=== PATIENT | female | born 1935 | race Caucasian/White ===

== ENCOUNTER 2017-01-15 14:53 | Inpatient (IN) | payer OTHER ==
[~2017-01-15] VITALS: Ht 160 cm; Wt 87.5 kg
[2017-01-15] VITALS (11 sets, daily range): BP systolic 79–167
[~2017-01-15 14:53] MED LIST: DEXTROSE 50% JECT 50 ML DISP.SYRIN ONE; LIDOCAINE 2GM/500 ML D5W BAG IV ONE; LIDOCAINE JECT 2% PF 100 MG/5ML SYRINGE ONE
[2017-01-15] MEDS ORDERED: VECURONIUM BROMIDE 10 MG/VIAL (NORCURON) IV ONE (15:00)
[2017-01-15] MEDS ORDERED: SUCCINYLCHOLINE CHLORIDE 20 MG/ML(QUELICIN) IVP ONE ×2 (15:00→15:15)
--- NOTE | 2017-01-15 15:12 | NUR ---
Patient not known to be of DNR status. Respiratory therapy at bedside prior to placement. Size 7.5 ET tube placed by Dr. Hale Cuff inflated with 10 cc air. Auscultation of breath sounds over bilateral chest wall. ET tube secured with tape. O2 sats 100% pulse ox. PCXR ordered to check tube placement.
[2017-01-15] MEDS ORDERED: PANCURONIUM BROMIDE 10 MG/10 ML VIAL (PAVULON) IV ONE (15:15)
[2017-01-15] MEDS ORDERED: PROPOFOL DRIP 100 ML IV ONE ×2 (15:15→15:22)
[2017-01-15] MEDS ORDERED: NACL 0.9% 1,000 ML IV ONE (15:15)
--- NOTE | 2017-01-15 15:15 | NUR ---
Patient to ER bed 02 to gown for evaluation. Side rails up.
--- NOTE | 2017-01-15 15:20 | NUR ---
PT INTUBATED AT THIS TIME WITH A SIZE 7.5ETT/23CM AT THE LIPLINE. COLOR CHANGE NOTED ON CALORIMETRIC CO2 DETECTOR WITH BILATERAL BREATHSOUND AUSCULTATED. PT PLACED ON CURNT VENT SETNGS OF AC 14 500 +5 50% VERBALIZED TO ER MD, SAT OF 100% AND HR OF 95 RECORDED ON MONITOR WITH BP 141/55, NO RESP DISTRESS NTD. RN INFORMED
--- NOTE | 2017-01-15 15:20 | NUR ---
Silviano tse in ED - 01/15/17 at 1722 by SDEDAFJ Patient to bed to serg for evaluation. Side rails up.
--- NOTE | 2017-01-15 15:30 | NUR ---
Pt arrived to ER via ACLS, Alert to voice, eyes epen, pt present with SOB and hyperventilation,per cecil luz possible aspiration pneumonia, +4 edema noted in jake upper and lower extremities, VS 127/80 , O2 91%, skin warm, cap refill <3,
[2017-01-15] MEDS ORDERED: SODIUM CL 3% FOR INHALATION 15 ML VIAL.NEB INH ONE (15:45)
[2017-01-15 15:59] LABS: EOSINOPHILS # (AUTO) 0.1 K/uL (0.0-0.4); EOSINOPHILS % (AUTO) 0.6 % (0.0-4.0); HEMOGLOBIN 10.2 g/dL (12.0-16.0); MEAN CORPUSCULAR HEMOGLOBIN 32 pg (27-31); NEUTROPHILS # (AUTO) 11.8 K/uL (1.8-7.7)
[2017-01-15 16:08] LABS: ANION GAP 5 (5-15); CALCIUM 8.4 mg/dL (8.4-11.0); CHLORIDE 105 mmol/L (98-107); CREATININE 1.92 mg/dL (0.55-1.30); GLUCOSE 106 mg/dL (70-99); HEMATOCRIT 29.8 % (36-48); MEAN CORPUSCULAR HGB CONC 34 % (32-36); MEAN CORPUSCULAR VOLUME 94 fL (79.0-98.0); POTASSIUM 5.3 mmol/L (3.5-5.1); RED BLOOD CELL COUNT(AUTO) 3.16 MIL/uL (4.2-6.2); SODIUM SERUM 135 mmol/L (136-145); UREA NITROGEN, BLOOD 53 mg/dL (8-21); WHITE BLOOD COUNT (AUTO) 13.9 K/uL (4.8-10.8)
[2017-01-15 16:09] LABS: BASOPHILS # (AUTO) 0.1 K/uL (0.0-0.2); BASOPHILS % (AUTO) 0.9 % (0.0-2.0); LYMPHOCYTES # (AUTO) 0.6 K/uL (1.0-5.5); LYMPHOCYTES % (AUTO) 4.4 % (20.5-51.5); MONOCYTES # (AUTO) 1.3 K/uL (0.0-1.0); MONOCYTES % (AUTO) 9.7 % (1.7-9.3); NEUTROPHILS % (AUTO) 84.4 % (40.0-70.0); PLATELET COUNT (AUTO) 193 K/uL (130-430)
[2017-01-15 16:11] LABS: INR 1.1 (0.8-1.2); PROTHROMBIN TIME 12.1 SECS (9.5-12.5)
[2017-01-15 16:13] LABS: ALANINE AMINOTRANSFERASE 35 U/L (12-78); ALBUMIN 3.1 g/dL (3.4-4.8); ASPARTATE AMINOTRANSFERASE 46 U/L (10-37); TOTAL BILIRUBIN 1.1 mg/dL (0.0-1.0); TOTAL PROTEIN, SERUM 7.6 g/dL (6.4-8.3)
[2017-01-15] MEDS ORDERED: PIPERACILLIN/TAZO 3.375 GM in NS 50 ML IV ONE (16:15)
[2017-01-15 16:47] LABS: ABG TOTAL HEMOGLOBIN 10.9 G/dL (12.0-18.0); BLOOD GAS BASE EXCESS -3.4 mmol/L (-3.0-3.0); BLOOD GAS COHb% 0.1 % (0.5-1.5); BLOOD GAS PH 7.361 (7.350-7.450); BLOOD O2Hb% 98.1 % (94.0-97.0)
[2017-01-15 16:48] LABS: BLOOD GAS HHB 1.6 % (0.0-6.0)
--- NOTE | 2017-01-15 17:00 | NUR ---
16# FR King catheter with use of sterile technique. Immediate return of 200 cc urine noted. Bedside drainage bag placed below level of bladder. Urine sample collected and sent to lab. Pt tolerated procedure . Patient unable to toilet self.
[2017-01-15] MEDS ORDERED: ALBUTEROL SULFATE 0.083% 2.5 MG/3 ML VIAL.NEB INH PRN (17:15)
[2017-01-15] MEDS ORDERED: ENOXAPARIN SODIUM 60 MG/0.6 ML SYRINGE SUBCUT ONE (17:15)
[2017-01-15] MEDS ORDERED: IPRATROPIUM BROM 0.5 MG/2.5 ML VIAL.NEB (ATROVENT) INH PRN (17:15)
[2017-01-15] MEDS ORDERED: ASPIRIN 81 MG TAB.CHEW NG ONE (17:15)
[2017-01-15 17:36] LABS: BILIRUBIN,URINE NEGATIVE (NEGATIVE); BLOOD, URINE 1+ (NEGATIVE); CLARITY/URINE SL HAZY (CLEAR); COLOR,URINE YELLOW (YELLOW); GLUCOSE,URINE NEGATIVE (NEGATIVE); KETONES,URINE NEGATIVE (NEGATIVE); LEUKOCYTE ESTERASE ,URINE NEGATIVE (NEGATIVE); NITRITE, URINE NEGATIVE (NEGATIVE); PROTEIN URINE 1+ (NEGATIVE); UROBILINOGEN,URINE 0.2 (0.2-1.0)
[2017-01-15] MEDS ORDERED: ACET325T53 PO (17:47)
[2017-01-15] MEDS ORDERED: METO50TA3 PO (17:47)
[2017-01-15] MEDS ORDERED: MORP20SY PO (17:47)
[2017-01-15] MEDS ORDERED: LEVO175T7 PO (17:47)
[2017-01-15] MEDS ORDERED: [UNRECOGNIZED DRUG - CODE] PO (17:47)
[2017-01-15] MEDS ORDERED: ONDA4VIA53 PO (17:47)
[2017-01-15] MEDS ORDERED: MELA3TAB37 PO (17:47)
[2017-01-15] MEDS ORDERED: MUPI1OIN5 TP (17:47)
[2017-01-15] MEDS ORDERED: METO1TAB11 PO (17:47)
[2017-01-15] MEDS ORDERED: SENN-83 PO (17:47)
[2017-01-15 17:48] LABS: BACTERIA,URINE FEW /HPF (None Seen)
[2017-01-15 17:50] LABS: FINE GRANULAR CASTS,URINE 0-10 /LPF (None Seen); MUCUS,URINE None Seen /LPF (None Seen); URINE AMORPHOUS URATE 1+ /HPF (None Seen)
[2017-01-15] MEDS ORDERED: PIPERACILLIN/TAZOBACTAM 3.375 GM/VIAL (ZOSYN) IV ONE ×2 (17:56→18:10)
--- NOTE | 2017-01-15 18:10 | NUR ---
Admission Received pt from ER via chun with ETT and on Profopol. Anderson 4. No SOB. Observed with +3 edema to BUE and BLE. Excoriation to bilateral under breast and abdominal folds. Nonblanchable redness to sacrum and buttocks. Excoriated bilateral upper thighs and perineum with open wounds. Photos taken. Family able to visit. Password for HIPPA purpose = "MOM". Will continue to monitor.
[2017-01-15 18:16] LABS: BARBITURATE, URINE NEGATIVE (NEG <=200); BENZODIAZEPINE, URINE NEGATIVE (NEG <=150); CANNABINOID, URINE NEGATIVE (NEG <=50); COCAINE, URINE NEGATIVE (NEG <=150); METHAMPHETAMINES SCREEN,URINE NEGATIVE (NEG <=500); OPIATE, URINE POSITIVE (NEG <=100); PHENCYCLIDINE SCREEN,URINE NEGATIVE (NEG <=25); UR TRICYCLIC ANTIDEPRESSANTS NEGATIVE (NEG <=300); URINE AMPHETAMINE NEGATIVE (NEG <=500); URINE METHADONE NEGATIVE (NEG <=200); URINE OXYCODONE SCREEN NEGATIVE (NEG <=100); URINE PROPOXYPHENE SCREEN NEGATIVE (NEG <=300)
--- NOTE | 2017-01-15 19:00 | NUR ---
NGT inserted Ngt inserted to left nares. Ngt placement confirmed via audible air auscultation with 2 RNs, including myself and DOMINIK Bell.
--- NOTE | 2017-01-15 19:00 | NUR ---
Pt's BP Pt's BP was 84/41. Charge nurse Kim Roman made aware who spoke with Dr. Raymond and obtained IVF.
--- NOTE | 2017-01-15 19:00 | NUR ---
Patient will be admitted to care of Dr Guerrero . Admitted to ICU unit. Will go to room 6 . Belongings list completed. Summary report printed. Report given to Kim.
--- NOTE | 2017-01-15 19:00 | NUR ---
Skin Will turn and reposition pt q2H and PRN. Heels offloading. Good skin care provided.
[2017-01-15 19:26] LABS: INR 1.2 (0.8-1.2); PROTHROMBIN TIME 13.2 SECS (9.5-12.5)
[2017-01-15] MEDS: NACL 0.9% 1,000 ML IV SCH (19:42)
[2017-01-15] MEDS ORDERED: VANCOMYCIN HCL 1,000 MG in NS 250 ML IV ONE (20:00)
--- NOTE | 2017-01-15 20:00 | NUR ---
Nursing update No SOB on ETT connected to vent. No changes to vent settings. Still on Propofol 10mcg/kg/min, arango 4. Left arm edema seeping. No sign of pain. Will continue to monitor.
[2017-01-15] MEDS: ALBUTEROL SULFATE 0.083% 2.5 MG/3 ML VIAL.NEB INH SCH ×2 (20:19→23:12)
[2017-01-15] MEDS: IPRATROPIUM BROM 0.5 MG/2.5 ML VIAL.NEB (ATROVENT) INH SCH ×2 (20:19→23:12)
[2017-01-15] MEDS: CEFEPIME 1 GM in D5W 50 ML IV SCH (21:30)
--- NOTE | 2017-01-15 21:30 | NUR ---
Report given to DOMINIK Rey and endorsed all care.
--- NOTE | 2017-01-15 21:45 | NUR ---
PM ASSESSMENT: Received patient on ETT attached to vent with vent settings AC 14, TV 500, FiO2 40%, Peep 5. Patient non-verbal does not follow commands, arouses to tactile stimuli. Breathing even and unlabored. NGT on left nare present, clamped with dark brown drainage observed on the suction tube. Afebrile. SR with PACs on the monitor. IV access on the right ac G20 and left hand G22. No signs of redness or swelling on the IV sites. Patient on Diprivan at 10mcg/kg/min. Anderson scale of 4. Edema +3 noted on BUE and BLE. King cath draining calin colored urine. HOB elevated at 30 degrees with bed in lowest level and with 3 side rails up. Bed brakes locked. Call light within reach. Will continue to monitor.
--- NOTE | 2017-01-15 23:35 | NUR ---
IV RE-INSERTION: IV on the left hand dislodged. Started a new IV site at the left upper chest G22. Successful after 1 attempt. Resumed current Diprivan drip on that site and normal saline on the right ac. Will observe for any signs of infiltration.
[2017-01-16] VITALS (35 sets, daily range): BP systolic 81–140
--- NOTE | 2017-01-16 00:23 | NUR ---
PT UPDATE: Patient in no acute distress. Breathing even and unlabored. Vent settings tolerated well. Oral care done. Will continue to monitor.
[2017-01-16] MEDS: ALBUTEROL SULFATE 0.083% 2.5 MG/3 ML VIAL.NEB INH SCH ×6 (03:09→23:44)
[2017-01-16] MEDS: IPRATROPIUM BROM 0.5 MG/2.5 ML VIAL.NEB (ATROVENT) INH SCH ×6 (03:09→23:44)
--- NOTE | 2017-01-16 04:00 | NUR ---
PT UPDATE: Patient in stable condition. No significant changes. Vital signs within normal limits. No acute distress or SOB noted. Vent settings tolerated well. Will continue to monitor.
--- NOTE | 2017-01-16 07:45 | NUR ---
BEGINNING OF SHIFT ASSESSMENT: Received patient lethargic, able to follow directions and make her needs known.Rhonchi lung sounds to bilateral upper lobes,diminished lung sounds to bilateral lower lobes. Pt tolerating current vent settings AC 14 TV 500 FIO2 40% PEEP 5.Patient currently infusing diprivan drip at 10 mcg/kg/min and NS at 70 mls/hr.Ports patent,flushable with blood return,dressings dry, intact, no signs of redness,infection noted.Bed locked,in lowest position,call light within easy reach,HOB elevated,upper side rails x 2 up.Pt continues to be closely monitored.
[2017-01-16 08:25] LABS: ABG TOTAL HEMOGLOBIN 10.1 G/dL (12.0-18.0); BLOOD GAS BASE EXCESS -2.9 mmol/L (-3.0-3.0); BLOOD GAS COHb% 0.3 % (0.5-1.5); BLOOD GAS HHB 1.7 % (0.0-6.0); BLOOD GAS PH 7.453 (7.350-7.450)
[2017-01-16 09:17] LABS: BASOPHILS # (AUTO) 0.1 K/uL (0.0-0.2); BASOPHILS % (AUTO) 0.8 % (0.0-2.0); EOSINOPHILS # (AUTO) 0.1 K/uL (0.0-0.4); EOSINOPHILS % (AUTO) 0.7 % (0.0-4.0); HEMATOCRIT 27.9 % (36-48); HEMOGLOBIN 9.2 g/dL (12.0-16.0); LYMPHOCYTES # (AUTO) 0.8 K/uL (1.0-5.5); LYMPHOCYTES % (AUTO) 5.1 % (20.5-51.5); MEAN CORPUSCULAR HEMOGLOBIN 32 pg (27-31); MEAN CORPUSCULAR HGB CONC 33 % (32-36); MEAN CORPUSCULAR VOLUME 97 fL (79.0-98.0); MONOCYTES # (AUTO) 1.2 K/uL (0.0-1.0); MONOCYTES % (AUTO) 7.9 % (1.7-9.3); NEUTROPHILS # (AUTO) 12.7 K/uL (1.8-7.7); NEUTROPHILS % (AUTO) 85.5 % (40.0-70.0); PLATELET COUNT (AUTO) 169 K/uL (130-430); RED BLOOD CELL COUNT(AUTO) 2.88 MIL/uL (4.2-6.2); RED CELL DISTRIBUTION WIDTH 18.5 % (9.0-15.0); WHITE BLOOD COUNT (AUTO) 14.9 K/uL (4.8-10.8)
[2017-01-16 09:21] LABS: ANION GAP 8 (5-15); CALCIUM 7.9 mg/dL (8.4-11.0); CHLORIDE 107 mmol/L (98-107); CREATININE 1.57 mg/dL (0.55-1.30); GLUCOSE 96 mg/dL (70-99); POTASSIUM 4.7 mmol/L (3.5-5.1); SODIUM SERUM 137 mmol/L (136-145); UREA NITROGEN, BLOOD 52 mg/dL (8-21)
[2017-01-16] MEDS: CEFEPIME 1 GM in D5W 50 ML IV SCH ×2 (09:46→20:56)
[2017-01-16] MEDS: NACL 0.9% 1,000 ML IV SCH (09:47)
--- NOTE | 2017-01-16 09:59 | NUR ---
Nutrition Update Bright Scale 12 noted. Pt admitted for pneumonia. Diet: NPO BMI: 26.6 kg/m2 RD to follow per nutrition care standards.
[2017-01-16] MEDS ORDERED: HYDROCORTISONE SOD SUCC 100 MG/2 ML VIAL IVP ONE (10:45)
[2017-01-16] MEDS ORDERED: NOREPINEPHRINE BITARTRATE 4 MG in NS 246 ML IV PRN (11:30)
[2017-01-16] MEDS ORDERED: FUROSEMIDE 100 MG in D5W 90 ML IV SCH (12:00)
--- NOTE | 2017-01-16 12:26 | NUR ---
MD COMMUNICATION: Dr. Raymond paged and contacted for pt complaint of pain 7/10 lower back pain.Received telephone orders for morphine 2mg IVP PRN Q4 for pain.
[2017-01-16] MEDS ORDERED: MORPHINE 2 MG/ML INJ. SYRINGE IVP PRN (12:30)
[2017-01-16] MEDS ORDERED: ACETAMINOPHEN 650 MG SUPP.RECT RC PRN (12:45)
[2017-01-16] MEDS ORDERED: ONDANSETRON HCL 4 MG/2 ML VIAL IVP PRN (12:45)
[2017-01-16] MEDS ORDERED: PANTOPRAZOLE SODIUM 40 MG/VIAL (PROTONIX) IVP ONE (13:15)
[2017-01-16] MEDS: MORPHINE 2 MG/ML INJ. SYRINGE IVP PRN ×2 (13:33→18:01)
--- NOTE | 2017-01-16 13:45 | NUR ---
PICC LINE: PICC line nurse at bedside performing procedure.Pt tolerating procedure.Pt continues to be monitored closely.
--- NOTE | 2017-01-16 14:20 | NUR ---
PICC LINE PLACEMENT VERIFIED: PICC line positive placement verified via chest x-ray.PICC line nurse stated PICC line can be used. Addendum: 01/16/17 at 1619 by Felipe Rodriguez RN Dr. Raymond informed and made aware.
--- NOTE | 2017-01-16 14:30 | NUR ---
PT CARE: CHG bath given, linen changed, oral care performed.Pt tolerating current vent settings.Bed locked, in lowest position,call light within easy reach, upper side rails x 2 up, HOB elevated.Pt continues to be monitored closely.
--- NOTE | 2017-01-16 16:00 | NUR ---
PT UPDATE: Patient turned,repositioned,suctioned.Pt continues to tolerate current vent settings.Pt monitored closely.
[2017-01-16] MEDS: HYDROCORTISONE SOD SUCC 100 MG/2 ML VIAL IVP SCH ×2 (16:13→22:25)
[2017-01-16] MEDS: PROPOFOL DRIP 100 ML IV PRN (17:00)
--- NOTE | 2017-01-16 18:00 | NUR ---
MORPHINE: Pt observed facial grimacing, restless, FLACC score of 7. Patient given morphine 2mg/ml IVP administered over 2 minutes as ordered. Reassess patient within 1 hour.
--- NOTE | 2017-01-16 18:30 | NUR ---
PAIN REASSESSMENT: Patient observed resting in bed, eye closed, no acute distress noted.Patient turned, repositioned and suctioned.Pt tolerating current vent settings, O2SAT 99%.Bed locked,in lowest position,call light within easy reach,HOB elevated,upper side rails x 2 up.
--- NOTE | 2017-01-16 19:05 | NUR ---
MD COMMUNICATION: Paged and made Dr. Raymond aware pt positive MRSA bilateral nares.Received new orders.Contact isolation precautions initiated.Contacted son Zhang, informed of pt condition,paperwork to be signed by family.Endorsed to DOMINIK Dubon of confirmed MRSA infection, family needing to sign MRSA patient notification paper work at front of chart.
--- NOTE | 2017-01-16 19:28 | NUR ---
CLOSING NOTE: Report and plan of care endorsed to DOMINIK Dubon via SBAR method.
--- NOTE | 2017-01-16 19:30 | NUR ---
PM ASSESS PT RESPONDS TO VOICE, LETHARGIC. AFEBRILE. WHEEZING AND RHONCHI AUSCULTATED BILAT. INTUBATED ETT7.5/22LL, VENT SETTINGS AC10, TV500, FIO2 35%, PEEP5, NO SOB OR DISTRESS. SR ON THE MONITOR. IV SITE ON RAC 20G, INTACT AND PATENT, INFUSING NS. ASHLEY PICC DOUBLE LUMEN, INTACT AND PATENT, INFUSING PROPOFOL AND LASIX. NGT ON LT NARE, PLACEMENT CHECKED, CLAMPED. TREJO CATHETER IN PLACE, DRAINING TO GRAVITY W/ YELLOW/DEANNA URINE. +3 PITTING EDEMA BUE AND BLE. EXCORIATION ON THIGHS, DENUDED ON SACRUM. POC DISCUSSED W/ FAMILY AND PT, FAMILY STATED UNDERSTANDING. ORIENTED TO CALL LIGHT AND W/IN REACH, SAFETY AND ISOLATION PRECAUTIONS IN PLACE, WILL CONTINUE TO MONITOR.
[2017-01-16] MEDS: VANCOMYCIN HCL 500 MG in NS 100 ML IV SCH (20:56)
[2017-01-16] MEDS: MUPIROCIN 2% TOPICAL OINTMENT 22 GM TP SCH (20:58)
[2017-01-17] VITALS (36 sets, daily range): BP systolic 90–159
[2017-01-17] MEDS: NACL 0.9% 1,000 ML IV SCH (00:48)
--- NOTE | 2017-01-17 03:00 | NUR ---
PROPOFOL INCREASED PT AGITATED, PROPOFOL INCREASED TO 15MCG/KG/MIN, PT TOLERATING WELL, WILL REASSESS SHORTLY.
[2017-01-17] MEDS: MORPHINE 2 MG/ML INJ. SYRINGE IVP PRN ×4 (03:09→22:33)
--- NOTE | 2017-01-17 03:15 | NUR ---
PAIN PT C/O GEN. PAIN, MORPHINE GIVEN, PT TOLERATING WELL, WILL REASSESS SHORTLY.
--- NOTE | 2017-01-17 03:15 | NUR ---
SVT PT CONVERTED TO SVT, VAGAL MANEUVERS DONE, HR DECREASING. ASYMPTOMATIC. SBP ABOVE 160. WILL CONTINUE TO MONITOR.
--- NOTE | 2017-01-17 04:15 | NUR ---
SR PT HR DECREASED TO 90'S, CONVERTED BACK TO SR. NO C/O PAIN AT THIS TIME. WILL CONTINUE TO MONITOR.
[2017-01-17] MEDS: HYDROCORTISONE SOD SUCC 100 MG/2 ML VIAL IVP SCH ×3 (05:06→21:05)
[2017-01-17] MEDS: PROPOFOL DRIP 100 ML IV PRN ×2 (05:56→17:51)
[2017-01-17 06:39] LABS: HEMATOCRIT 28.4 % (36-48); HEMOGLOBIN 9.4 g/dL (12.0-16.0); MEAN CORPUSCULAR HEMOGLOBIN 32 pg (27-31); MEAN CORPUSCULAR HGB CONC 33 % (32-36); MEAN CORPUSCULAR VOLUME 97 fL (79.0-98.0); PLATELET COUNT (AUTO) 188 K/uL (130-430); RED BLOOD CELL COUNT(AUTO) 2.93 MIL/uL (4.2-6.2); WHITE BLOOD COUNT (AUTO) 19.5 K/uL (4.8-10.8)
[2017-01-17 07:15] LABS: ALANINE AMINOTRANSFERASE 26 U/L (12-78); ALBUMIN 2.3 g/dL (3.4-4.8); ANION GAP 6 (5-15); ASPARTATE AMINOTRANSFERASE 31 U/L (10-37); CHLORIDE 111 mmol/L (98-107); GLUCOSE 118 mg/dL (70-99); POTASSIUM 4.7 mmol/L (3.5-5.1); SODIUM SERUM 140 mmol/L (136-145); TOTAL PROTEIN, SERUM 6.4 g/dL (6.4-8.3); UREA NITROGEN, BLOOD 50 mg/dL (8-21)
--- NOTE | 2017-01-17 07:15 | NUR ---
[place] of care Pt on ETT with settings: AC 10, TV 500, fio2 35%, Peep 5. Tolerating well without SOB. On propofol drip 15mcg/min with arango 4. No sign of pain. Seeping BUE edema. Turned and repositioned. Safe environment provided. Will continue to monitor.
--- NOTE | 2017-01-17 07:36 | NUR ---
CLOSING ALL NEEDS MET. REPORT GIVEN W/ SBAR AT BEDSIDE TO NURSE STEPHANIE LEHMAN.
[2017-01-17] MEDS: IPRATROPIUM BROM 0.5 MG/2.5 ML VIAL.NEB (ATROVENT) INH SCH ×5 (07:46→23:56)
[2017-01-17] MEDS: ALBUTEROL SULFATE 0.083% 2.5 MG/3 ML VIAL.NEB INH SCH ×5 (07:46→23:56)
--- NOTE | 2017-01-17 08:27 | NUR ---
RT NOTES Per Dr José's order, vent settings changed to SIMV 8 PS 10. No immediate adverse effects noted. Vitals before vent change: H.R. 80 R.R 10. Pt. was educated on deep breathing and appears to follow understand. Will cont. to monitor pt.
--- NOTE | 2017-01-17 08:30 | NUR ---
Monitoring pt with the change in vent settings. Will check if pt able to tolerate SIMV. Will keep RT informed.
[2017-01-17] MEDS: 0.45% NACL 1,000 ML IV SCH (08:42)
[2017-01-17] MEDS: PANTOPRAZOLE SODIUM 40 MG/VIAL (PROTONIX) IVP SCH (08:44)
[2017-01-17] MEDS: CEFEPIME 1 GM in D5W 50 ML IV SCH ×2 (08:44→20:13)
[2017-01-17] MEDS: FUROSEMIDE 100 MG in D5W 90 ML IV SCH (09:00)
--- NOTE | 2017-01-17 09:15 | NUR ---
RT NOTES Found H.R. 100 and vent alarming to indicate low minute volume. Pt. was reeducated on SIMV mode and was re-assessed by asking how breathing is with Ingrdi's help.(in-house paste mixer). Pt. denies difficulty breathing at first and was re-educated on deep-breathing, as well as why the ventilator was alarming and to try to relax, but H.R and respiratory efforts did not improve. Pt. eventually claimed breathing was somewhat difficult and that she was unable to relax. Per outstanding order by Dr José, vent settings back to AC 10 @0986. Almost immediately after the change, respiratory efforts appeared more relaxed and H.R. 89. RN made aware of the change.
[2017-01-17 10:21] LABS: ABG TOTAL HEMOGLOBIN 10.4 G/dL (12.0-18.0); BLOOD GAS BASE EXCESS -3.9 mmol/L (-3.0-3.0); BLOOD GAS COHb% 0.3 % (0.5-1.5); BLOOD GAS HHB 2.7 % (0.0-6.0); BLOOD GAS PH 7.392 (7.350-7.450); BLOOD O2Hb% 96.4 % (94.0-97.0)
--- NOTE | 2017-01-17 10:35 | NUR ---
Report given to DOMINIK Wang and endorsed all care.
[2017-01-17 11:58] LABS: BAND % (MANUAL) 13 % (0-6); BASOPHILS % (MANUAL) 0 % (0-2); EOSINOPHILS % (MANUAL) 0 % (0-7); LYMPHOCYTES % (MANUAL) 6 % (20-46); MONOCYTES % (MANUAL) 2 % (0-11)
[2017-01-17] MEDS ORDERED: ALBUMIN HUMAN 25% 50 ML IV SCH (13:30)
[2017-01-17] MEDS: MUPIROCIN 2% TOPICAL OINTMENT 22 GM TP SCH ×2 (14:43→20:12)
--- NOTE | 2017-01-17 16:00 | NUR ---
WOUND EVALUATION: Wound Consult received from Dr. Raymond. Thank you, Dr. Raymond, for the consult. Patient received in a Nuria Bed with an IsoFlex CARLOS mattress with low air-loss therapy initiated, awake, alert, non-verbal (nods "yes or no" to questions). Patient is unable to turn independently. Bright Score is a 13. Past Medical History: Congestive Heart Failure, Chronic Kidney Disease, Anasarca, Anemia of Chronic Disease, Hypertension, Hyperkalemia, Hypothyroidism, Lliver Cirrhosis, Proteinuria, Thrombocytopenia, and Cholecystectomy. Recent Labs: WBC 19.5, RBC 2.93, Hgb 9.4, Hct 28.4, Cl 111, BUN 50, Creat 1.50, Gluc 118, Ca 8.0, Alk Phos 125, Alb 2.3, PT 13.2. Intrinsic factors that delay wound healing: Congestive Heart Failure, Chronic Kidney Disease, and Anemia of Chronic Disease, Extrinsic factors that delay wound healing: Immobility. Microbiology: MRSA Screen results positive. Blood Culture x 2 and Endotracheal Sputum Culture results in progress. Urine Culture negative. Wound Assessment: 1) Buttocks: Multiple non-blanchable spots, present on admission. 2) Left Inner Buttock: Dark discolored spot, present on admission. Recommend: Cleanse sites with normal Saline. Pat dry. Apply Calmoseptine cream to involved areas. Perform site care qid, and as needed for soiling. Continue to monitor sites for worsening condition. 3) Bilateral Upper Extremities: Edema with small-moderate weeping, present on admission. Recommend: Cleanse sites with normal Saline. Pat dry. Wrap extremity with Interdry AG. Assess sites q shift, and change Interdry AG q five days, and as needed for soiling. 4) Sydnie/Inguinal/Bilateral Proximal Medial Thighs: Erythema from IAD, present on admission. Recommend: Cleanse sites with normal Saline. Pat dry. Apply Calmoseptine cream to involved areas. Perform site care qid, and as needed for soiling. Also recommend: Reposition patient side to side only every 2 hours with pillow support, and off-load pressure areas with pillows for pressure re-distribution. Offload, elevate and float bilateral heels with pillows at all times. Perform skin care and monitor skin integrity Q shift. Use moisture barrier cream on buttocks and other moisture susceptible areas QID and as needed for soiling. Maintain patient on a low air-loss mattress.
[2017-01-17] MEDS ORDERED: MENTHOL/ZINC OXIDE 113 GM OINT. TP PRN (17:00)
--- NOTE | 2017-01-17 17:10 | NUR ---
COMMUNICATION: Dr.Bashoura MANRIQUEZ communicated new orders, verbalized cancel albumin order.Pharmacy updated.
--- NOTE | 2017-01-17 19:24 | NUR ---
CLOSING NOTE: Plan of care and report endorsed to DOMINIK Dubon via SBAR method.
--- NOTE | 2017-01-17 19:40 | NUR ---
PM ASSESS PT RESPONDS TO VOICE, LETHARGIC. AFEBRILE. RHONCHI AUSCULTATED THROUGHOUT. INTUBATED ETT7.5/22LL, VENT SETTINGS AC10, TV500, FIO2 35%, PEEP5, NO SOB OR DISTRESS. SR W/ OCC. PVC'S ON THE MONITOR. IV SITE ON RAC 20G, INTACT AND PATENT, SL. ASHLEY PICC DOUBLE LUMEN, INTACT AND PATENT, INFUSING PROPOFOL, LASIX, AND 1/2NS. NGT ON LT NARE, PLACEMENT CHECKED, W/ BROWN LIQUID, CLAMPED. TREJO CATHETER IN PLACE, DRAINING TO GRAVITY W/ DEANNA URINE. +3 PITTING EDEMA BUE AND BLE, AND WEEPING ON BUE. EXCORIATION ON THIGHS, DENUDED ON SACRUM. POC DISCUSSED W/ FAMILY AND PT, FAMILY STATED UNDERSTANDING. ORIENTED TO CALL LIGHT AND W/IN REACH, SAFETY AND ISOLATION PRECAUTIONS IN PLACE, WILL CONTINUE TO MONITOR.
[2017-01-17] MEDS: VANCOMYCIN HCL 500 MG in NS 100 ML IV SCH (20:12)
[2017-01-17] MEDS: MENTHOL/ZINC OXIDE 113 GM OINT. TP SCH (21:05)
--- NOTE | 2017-01-17 22:33 | NUR ---
PAIN PT GRIMACING, FAMILY REQUESTING FOR PAIN MED. MORPHINE GIVEN, PT TOLERATING WELL, WILL REASSESS SHORTLY.
[2017-01-18] VITALS (32 sets, daily range): BP systolic 111–174
[2017-01-18] MEDS: 0.45% NACL 1,000 ML IV SCH ×2 (01:50→15:09)
[2017-01-18] MEDS: PROPOFOL DRIP 100 ML IV PRN (04:52)
[2017-01-18] MEDS: HYDROCORTISONE SOD SUCC 100 MG/2 ML VIAL IVP SCH ×2 (06:37→15:09)
[2017-01-18 06:38] LABS: ALANINE AMINOTRANSFERASE 20 U/L (12-78); ALBUMIN 2.1 g/dL (3.4-4.8); ANION GAP 5 (5-15); ASPARTATE AMINOTRANSFERASE 27 U/L (10-37); CALCIUM 7.8 mg/dL (8.4-11.0); CHLORIDE 114 mmol/L (98-107); CREATININE 1.55 mg/dL (0.55-1.30); GLUCOSE 110 mg/dL (70-99); POTASSIUM 4.1 mmol/L (3.5-5.1); SODIUM SERUM 138 mmol/L (136-145); TOTAL PROTEIN, SERUM 5.9 g/dL (6.4-8.3); UREA NITROGEN, BLOOD 53 mg/dL (8-21)
[2017-01-18 06:49] LABS: HEMATOCRIT 30.9 % (36-48); HEMOGLOBIN 10.1 g/dL (12.0-16.0); MEAN CORPUSCULAR HEMOGLOBIN 31 pg (27-31); MEAN CORPUSCULAR HGB CONC 33 % (32-36); MEAN CORPUSCULAR VOLUME 94 fL (79.0-98.0); PLATELET COUNT (AUTO) 204 K/uL (130-430); RED BLOOD CELL COUNT(AUTO) 3.27 MIL/uL (4.2-6.2); RED CELL DISTRIBUTION WIDTH 18.3 % (9.0-15.0); WHITE BLOOD COUNT (AUTO) 22.9 K/uL (4.8-10.8)
--- NOTE | 2017-01-18 07:29 | NUR ---
CLOSING ALL NEEDS MET. REPORT GIVEN W/ SBAR AT BEDSIDE TO NURSE TANVIR LEHMAN.
[2017-01-18] MEDS: ALBUTEROL SULFATE 0.083% 2.5 MG/3 ML VIAL.NEB INH SCH ×3 (07:39→15:40)
[2017-01-18] MEDS: IPRATROPIUM BROM 0.5 MG/2.5 ML VIAL.NEB (ATROVENT) INH SCH ×3 (07:39→15:40)
[2017-01-18 07:55] LABS: BLOOD GAS BASE EXCESS -3.7 mmol/L (-3.0-3.0)
[2017-01-18 07:56] LABS: ABG TOTAL HEMOGLOBIN 11.1 G/dL (12.0-18.0); BLOOD GAS COHb% 0.3 % (0.5-1.5); BLOOD GAS HHB 2.2 % (0.0-6.0); BLOOD O2Hb% 97.1 % (94.0-97.0)
[2017-01-18 08:05] LABS: BAND % (MANUAL) 8 % (0-6); BASOPHILS % (MANUAL) 0 % (0-2); EOSINOPHILS % (MANUAL) 0 % (0-7); LYMPHOCYTES % (MANUAL) 7 % (20-46); MONOCYTES % (MANUAL) 4 % (0-11)
--- NOTE | 2017-01-18 08:30 | NUR ---
CALL OUT TO DR GILLETTE TO REPORT ABGS.
--- NOTE | 2017-01-18 09:15 | NUR ---
RT NOTES Vent settings changed to SIMV [address] José's order. No adverse reactions noted. Will monitor pt.
--- NOTE | 2017-01-18 09:19 | NUR ---
VENT CHANGED TO SIMV 10/PS [address] GILLETTE[address] NO CALL BACK FROM EARLIER CALL TO REPORT ABG'S.
[2017-01-18] MEDS: PANTOPRAZOLE SODIUM 40 MG/VIAL (PROTONIX) IVP SCH (09:24)
[2017-01-18] MEDS: MUPIROCIN 2% TOPICAL OINTMENT 22 GM TP SCH (09:24)
[2017-01-18] MEDS: CEFEPIME 1 GM in D5W 50 ML IV SCH (09:24)
--- NOTE | 2017-01-18 10:10 | NUR ---
RT NOTES Pt. cont. to tolerate SIMV well. No SOB noted. H.R. 94 R.R.13 SPO2 100%.
--- NOTE | 2017-01-18 10:24 | NUR ---
CHG BATH DONE. PARTIAL LINEN CHANGED.
--- NOTE | 2017-01-18 10:30 | NUR ---
TOLERATING SIMV. DENIES BEING SOB. DIPRIVAN AT 10 MCGS AND PT ABLE TO RESPOND APPROPRIATELY. WILL CONTINUE TO MONITOR.
--- NOTE | 2017-01-18 10:44 | NUR ---
Nutrition F/U Admitting Diagnosis Bilateral PNA, acute respiratory failure Reviewed Pertinent Medical/Surgical Hx Medical Record Family Member Medical History Comment: Non-alcoholic liver cirrhosis, CKD, CHF, anasarca, anemia of chronic disease, HTN, hyperkalemia, hypothyroidism, proteinuria, thrombocytopenia Past Sx Hx: cholecystectomy per MD notes Subjective Information Pt seen +intubated, +ETT to vent, and NGT to L nares (clamped). Per MD progress notes, pt noted w/ poor prognosis and hospice. Per RN, MDs still need to speak w/ pt's family regarding pt's current condition. Per EMR, no BM noted since admission. Edema to bilateral upper and lower extremities. Pt is not yet meeting optimal nutritional needs. RD relayed recommendations to RN. Pt is not appropriate for nutrition education. Current Diet Order/Nutrition Support NPO (x2 days) Patient/Significant Other Unable To Verbalize Education Provided Not Indicated Pertinent Medications Reviewed propofol at 5.253 ml/hr (10 mcg/kg/min) provides 139 kcal/day Pertinent Labs Reviewed Height (Feet) 5 feet Height (Inches) 3.00 inches Weight (Pounds) 193 pounds Weight (Calculated Kilograms) 87.325109 kilograms Patient Weight 87.543 kg Body Mass Index 34.18 kg/m2 Usual Weight 165 lbs %UBW 117 %IBW 168 [place]/Adjusted Body Weight IBW: 115 lb (52 kg); Adjusted IBW (obesity): 133 lb (60 kg) Recent Weight Change Yes - Weight gain d/t fluid retention Weight Status Obese Gastrointestinal Symptoms None Food Allergies No Usual Diet At Home [facility]: 2 gm Na diet, regular liquids consistency Skin Integrity Comment: Bright score: 14; per Facility Maintenance Mechanic note 01/17/17: 1) Buttocks: Multiple non-blanchable spots, present on admission. 2) Left Inner Buttock: Dark discolored spot, present on admission. 3) Bilateral Upper Extremities: Edema with small-moderate weeping, present on admission. 4) Sydnie/Inguinal/Bilateral Proximal Medial Thighs: Erythema from IAD, present on admission. Current % PO N/A Estimated Energy Expenditure (kcals/day) 1421 kcal/day (Modified [place] Equation for critically ill obese/vent) Estimated Protein Required (g/day) 42-65 gm/day (0.8-1.25 gm/kg IBW for CKD and wound healing) Estimated Fluid Required (l/day) Per MD for CHF/CKD Problem/Etiology/Signs/Symptoms Inadequate nutritional intakes related to critically ill state/vent support as evidenced by no current nutrition support to meet estimated nutritional requirements. *ongoing Unintentional weight gain related to fluid retention as evidenced by 117% of UBW. *ongoing Expected Outcomes/Goals 1. Meet at least 50% of estimated needs with acceptable tolerance 2. Labs trending within normal limits 3. Improved skin integrity, wound healing 4. Improved GI integrity 5. Weight maintenance Dietitian Recommendations * Monitor advancement of diet * Initiate NGT feedings if/when medically appropriate * Consider Nutren Pulmonary at 35 ml/hr, Free Water Flush per MD for CHF Provides (w/ current propofol rate): 1399 kcal/day, 57 gm protein/day, and 657 ml free water/day This meets 98% of estimated calorie needs and 88% of upper end of estimated protein needs Follow Up High Risk: F/U in 2-3 days Addendum: 01/18/17 at [address] Nutrition Consult (Low Bright Score of 13, non-intact skin) 01/17/17 [id number]
[2017-01-18] MEDS: FUROSEMIDE 100 MG in D5W 90 ML IV SCH (11:45)
[2017-01-18] MEDS: MENTHOL/ZINC OXIDE 113 GM OINT. TP SCH (12:55)
--- NOTE | 2017-01-18 15:00 | NUR ---
DR JOHNSON IN TO SEE PT. SPOKE WITH PTS FAMILY REGARDING WITHDRAWAL OF CARE AND HOSPICE. FAMILY WISHES TO PROCEED. DR JOHNSON SPOKE WITH THE PT AFTER CONVERSATION WITH FAMILY AN INFORMED THE PT OF THEPLAN. PT IS IN AGREEMENT AND SHAKES HEAD YES SHE IS AWARE THAT SHE MAY NOT LIVE WHEN THEY REMOVE THE BREATHING TUBE AND VENTILATOR TODAY. THIS IS HER WISH.
--- NOTE | 2017-01-18 15:15 | NUR ---
DR GILLETTE IN TO SEE PT. DR JOHNSON AND DR GILLETTE SPOKE WITH EACH OTHER. DR GILLETTE WENT IN TO SEE PT. ORDERS LEFT.
[2017-01-18] MEDS ORDERED: LORazepam 2 MG/ML VIAL IVP PRN (16:00)
--- NOTE | 2017-01-18 16:20 | NUR ---
DIPRIVAN TURNED OFF.
[2017-01-18] MEDS: MORPHINE PCA 50 mg/50 mL NS 50 ML IV PRN (16:39)
--- NOTE | 2017-01-18 16:39 | NUR ---
MORPHINE DRIP STARTED AT 2 MG/HR. FAMILY AWARE OF TERMINAL EXTUBATION ADN WAITING IN WAITING ROOM.
[2017-01-18] MEDS: MORPHINE 2 MG/ML INJ. SYRINGE IVP PRN ×2 (16:40→17:54)
--- NOTE | 2017-01-18 16:40 | NUR ---
MORPHINE 2 MG IVP GIVEN FOR COMFORT IN PREPARATION FOR TERMINAL EXTUBATION. PT AWARE OF THE PLAN AND WOULD LIKE TO BE EXTUBATED AND GIVEN COMFORT MEASURES. DIPRIVAN OFF AT 1620.
--- NOTE | 2017-01-18 16:50 | NUR ---
FAMILY ANXIOUS, PT ANXIOUS AND UNABLE TO GET COMFORTABLE IN BED. FAMILY ASKING ME TO GIVE HER THE MORPHINE AND MAKE IT QUICK. I INFORMED THEM THAT I HAVE NO CONTROL OVER HOW FAST THE PROCESS TAKES, THAT WE HAVE GUIDELINES TO FOLLOW. MORPHINE INCREASED TO 3 MG/HR VIA GENERAL FARM HAND PUMP.
--- NOTE | 2017-01-18 16:55 | NUR ---
MORPHINE DRIP INCREASED TO 3 MG/HR FOR COMFORT.
--- NOTE | 2017-01-18 17:24 | NUR ---
MORPHINE INCREASED TO 4 MG/HR TO KEEP PT COMFORTABLE. FAMILY IN AND OUT TO VISIT.
--- NOTE | 2017-01-18 17:39 | NUR ---
MORPHINE INCREASED TO 5 MG/HR FOR COMFORT BY CHARGE NURSE.
--- NOTE | 2017-01-18 17:48 | NUR ---
PT EXTUBATED BY RT PER DR GILLETTE'S ORDER. NO 02 PER ORDER. FAMILY AT BEDSIDE POST EXTUBATION. MORPHINE DRIP INCREASED TO 5 MG/HR. MORPHINE 2MG IVP GIVEN JUST BEFORE EXTUBATION.
--- NOTE | 2017-01-18 17:48 | NUR ---
RT NOTES Per family's request and Dr José's order, pt extubated.
--- NOTE | 2017-01-18 18:20 | NUR ---
MORPHINE INCREASED TO 6 MG/HR FOR COMFORT. FAMILY AT BEDSIDE.
--- NOTE | 2017-01-18 19:00 | NUR ---
REPORT GIVEN TO ONCOMING NURSE. MORPHINE AT 6 MG/HR. NO DISTRESS. FAMILY AT BEDSIDE.
--- NOTE | 2017-01-18 19:30 | NUR ---
PM SHIFT ASSESSMENT Pt is lying in bed with eyes closed, family at bedside. Pt is lethargic and unable to make needs known. Pt makes occasional grimaces and moans. Will administer pain meds as needed. Isolation precautions are in place r/t MRSA in nares. Rhonchi lung sounds are noted bilaterally in the upper lobes, diminished bilaterally in lower lobes. O2 is not being given, pt was extubated per pts families wish. Sinus tach noted on monitor. Pt has generalized edema, +3 pitting bilaterally in upper and lower extremities. Weeping is noted bilaterally to upper extremities. IVSL to RAC, PICC line to ASHLEY with NS and THREAD SEPARATOR (morphine @ 6mg). Abdomen is distended, hypoactive bowel sounds in all 4 quadrants were auscultated. Diet is NPO. King catheter is in place draining to gravity with calin urine. Excoriation on inner thighs and sacrum is denuded, calmoseptine is applied. Safety measures are in place, will continue to monitor.
--- NOTE | 2017-01-18 21:00 | NUR ---
HEARING SCREENER Charge nurse changed HEARING SCREENER morphine from 6mg/hr to 7mg/hr d/t family reporting pt grimacing and moaning related to pain.
[2017-01-19] VITALS (8 sets, daily range): BP systolic 92–126
--- NOTE | 2017-01-19 00:15 | NUR ---
[facility] Called [facility] at 0011 and spoke with Jong. Notified [facility] that pt is terminally extubated for possible organ donation. Reference Number: [id number]
[2017-01-19] MEDS: MORPHINE PCA 50 mg/50 mL NS 50 ML IV PRN ×2 (00:27→07:31)
--- NOTE | 2017-01-19 05:10 | NUR ---
UPDATE FAMILY Updated family member of patients current status.
[2017-01-19] MEDS: 0.45% NACL 1,000 ML IV SCH (05:36)
--- NOTE | 2017-01-19 07:30 | NUR ---
ENDORSEMENT Endorsed care of pt at bedside with nursing SBAR to DOMINIK Bacon.
--- NOTE | 2017-01-19 07:30 | NUR ---
AM ROUNDS RECEIVED PT UP IN BED. NONVERBAL, UNRESPONSIVE. BREATHING IS EVEN AND UNLABORED ON RA. PT IN SINUS TACHYCARDIA ON MONITOR. F/C WITH NO URINE IN COLLECTION BAG. PT IS A DNR, TERMINALLY EXTUBATED YESTERDAY. GRANDDAUGHTER IS AT BEDSIDE.
--- NOTE | 2017-01-19 07:31 | NUR ---
VTACH PT IN VTACH. THERAPEUTIC CONVERSATION HELD AT BEDSIDE WITH GRANDDAUGHTER. STAYED WITH GRANDDAUGHTER FOR SUPPORT UNTIL HER FATHER- PT SON ARRIVED.
--- NOTE | 2017-01-19 07:37 | NUR ---
RECORD OF RECORD OF INITIATED. NECESSARY AUTHORITIES NOTIFIED INCLUDING MD, WINDOWS APPLICATION DEVELOPER, [employer], ADMITTING, AND DIGITAL PRODUCTION ARTIST.
--- NOTE | 2017-01-19 07:37 | NUR ---
PT PT ASYSTOLE ON MONITOR. NO HEART SOUNDS ON AUSCULTATION 1 MIN. NO PALPABLE PULSES, NO OBSERVED RESPIRATORY EFFORT. NO BREATH SOUNDS ON AUSCULTATION. OPERATIONS AND MAINTENANCE SUPERVISOR, AJAY, IS PRESENT- 2ND RN VERIFICATION PROVIDED. CLOSED PT'S JAW. DRIP AND MONITORS TURNED OFF. FAMILY IS AT BEDSIDE. CONDOLENCES OFFERED. PRIVACY PROVIDED.
--- NOTE | 2017-01-19 09:30 | NUR ---
FAMILY CARE FAMILY SUPPORT, AND THERAPEUTIC CONVERSATION HELD. COURTESY TRAY FROM DIETARY PROVIDED. FAMILY EXPRESSED GRATITUDE. ENCOURAGED FAMILY TO CALL ME WITH ANY NEEDS.
--- NOTE | 2017-01-19 10:32 | NUR ---
MORTUARY HERE MORTUARY HERE REAGENT TENDER HELPER PT. SON CONSENTED. PT WAS CLEANED, TAGGED, BAGGED. ALL LINES REMOVED.
== END 2017-01-19 07:37 | disposition expired | DRG 208 ==
LOC: SED 14:53 → SIC 17:01
PROVIDERS: ADMIT Family Medicine; ATTEND Family Medicine
PROC: 5A1945Z Respiratory Ventilation, 24-96 Consecutive Hours (ICD-10-PCS; principal; 2017-01-15)
PROC: 0BH17EZ Insertion of Endotracheal Airway into Trachea, Via Natural or Artificial Opening (ICD-10-PCS; 2017-01-15)
PROC: 02HV33Z Insertion of Infusion Device into Superior Vena Cava, Percutaneous Approach (ICD-10-PCS; 2017-01-16)
PROC: B548ZZA Ultrasonography of Superior Vena Cava, Guidance (ICD-10-PCS; 2017-01-16)
DX: J69.0 Pneumonitis due to inhalation of food and vomit (principal); J96.01 Acute respiratory failure with hypoxia; G93.40 Encephalopathy, unspecified; I13.0 Hypertensive heart and chronic kidney disease with heart failure and stage 1 through stage 4 chronic kidney disease, or unspecified chronic kidney disease; N18.4 Chronic kidney disease, stage 4 (severe); I50.9 Heart failure, unspecified; Z66 Do not resuscitate; E03.9 Hypothyroidism, unspecified; D63.8 Anemia in other chronic diseases classified elsewhere; K75.81 Nonalcoholic steatohepatitis (NASH); K74.60 Unspecified cirrhosis of liver; E87.70 Fluid overload, unspecified; E87.5 Hyperkalemia; I95.9 Hypotension, unspecified; Z90.49 Acquired absence of other specified parts of digestive tract; Z88.5 Allergy status to narcotic agent; Z79.899 Other long term (current) drug therapy; Z22.322 Carrier or suspected carrier of Methicillin resistant Staphylococcus aureus
CPT/HCPCS: 36415; 36600; 70450-TC; 71010; 80048; 80053; 80307; 81000-TC; 82140-TC; 82803-TC; 83605; 83880; 84484; 85007; 85025; 85027; 85610-TC; 85730-TC; 87040-TC; 87070-TC; 87081; 87086; 87205-TC; 93005; 93970; 94002; 94003; 94640; 96365; 96375; 99291; C1751; C9113; J0330; J0692; J1650; J1720; J1940; J2001; J2270; J2405; J2543; J2704; J3370; J3490; J7030; J7050; J7060